=== PATIENT | female | born 1990 | race Caucasian/White ===

== ENCOUNTER 2021-09-08 05:08 | Inpatient (IN) ==
[2021-09-08] MEDS ORDERED: OXYTOCIN 30 UNITS/500 ML BAG IV PRN ×3 (05:42→17:41)
--- NOTE | 2021-09-08 05:45 | History & Physical Report ---
Date of Service September 08, 2021 Assessment & Plan (1) : Plan: Membranes grossly ruptured, admit to L&D, EFM/toco, labs, COVID swab per protocol. Pt would like epidural at some point. History of Present Illness Chief Complaint: rupture of membranes Primary Care Provider: [facility] 31yo @ 39 11/29, presents to L&D after rupture of membranes for clear fluid at about 3:30a. +FM, no vaginal bleeding. Contractions started every few minutes after rupture of membranes. Allergies Allergy/AdvReac Type Severity Reaction Status Date / Time No Known Allergies Allergy Verified 09/03/21 10:41 Home Medications Medication Instructions Recorded Confirmed Type docosahexaenoic acid 200 mg 1 mg PO DAILY 12/25/20 09/08/21 History capsule ( DHA) levothyroxine 88 mcg tablet 88 mcg PO DAILY 12/25/20 09/08/21 History prenat.vits,raul,kor-ivwl-udpmf 1 tab PO DAILY 12/25/20 09/08/21 History cholecalciferol (vitamin D3) 50 2,000 unit PO DAILY #30 cap 03/29/21 09/08/21 Rx mcg (2,000 unit) capsule Patient History Medical History Varicella vaccination Surgical History History of removal of skin mole S/P hernia repair umbilical S/P tonsillectomy Family History Grandmother (Maternal) Breast cancer Father Melanoma Denies family history of Ovarian cancer Colorectal cancer Social History Smoking Status: Never smoker Hx Alcohol Use: No Hx Substance Use: No Preferred Language: Surinamese Communication Ability: Effective [employer] Required: No Beliefs That Will Affect Care: None marital status: marital status details: Solomon Stevens (42) [phone] Current Living Situation: Spouse Current Living Situation Comment: lives with spouse, step son, dog, cats-spouse changing litter current occupational status: employed current occupation: grad student [employer] Other Information That Helps Us Care for You: No Feels Safe at Home: Yes Safety Concerns: Feels Safe At This Time Assistive Devices: None Review of Systems All systems reviewed & are unremarkable except as noted in HPI & below Physical Exam Physical Exam: FHT Cat 1 [place] Q 2-3 SVE per RN /- Constitutional: WD/WN, vitals as above Respiratory: normal respiratory effort, lungs clear to auscultation no respiratory distress Cardiovascular: Rate/Rhythm: regular rate and regular rhythm Gastrointestinal (Abdomen): Inspection/Auscultation: abdomen normal to inspection Percussion/Palpation: abdomen soft; abdomen nontender Gravid. No s/s chorio or abruption. Skin: no rashes, warm and dry Psychiatric: A+Ox3, euthymic affect Results & Data ([facility]) Vital Signs (Past 12 Hours) Vital Signs Temp Pulse Resp BP 09/08/21 05:25 88 133/70 09/08/21 05:23 36.7 C 20 Coding Level of Care Code None Diagnoses Z34.90
[2021-09-08 06:10] LABS: Hematocrit (blood only) 40.6 % (37-47); Hemoglobin 13.9 g/dL (12.0-16.0); Mean Corpuscular Hemoglobin 32.2 pg (25-34); Mean Corpuscular Hgb Conc 34.2 g/dL (32-36); Mean Platelet Volume 10.9 fL (7.4-10.4); Platelet Count 172 K/uL (130-400); RDW Coefficient of Variation 13.4 % (11.5-14.5); RDW Standard Deviation 46.4 fL (36.4-46.3); Red Blood Count 4.32 M/uL (4.2-5.4)
[2021-09-08] MEDS: LACTATED RINGER'S 1,000 ML IV PRN ×2 (08:33→09:34)
[2021-09-08] MEDS ORDERED: ePHEDrine sulfate 50 MG/ML AMP ONE (08:56)
[2021-09-08] MEDS ORDERED: BUPIVACAINE 0.25% 30 ML VIAL ONE (08:56)
[2021-09-08] MEDS ORDERED: SODIUM CHLORIDE 0.9% INJ 10 ML VIAL ONE (08:56)
[2021-09-08] MEDS ORDERED: fentaNYL citrate 100 MCG/2 ML VIAL ONE (08:56)
[2021-09-08] MEDS ORDERED: fentaNYL 2MCG/ML ROPIVACAINE 1.25MG/ML 100 ML BAG EPI ONE (08:57)
--- NOTE | 2021-09-08 09:04 | Anesthesiology Consultation ---
Date of Service September 08, 2021 Assessment & Plan (1) Encounter for pre-operative examination: Chart Review Chart Review: Acceptable Risk for Labor Epidural History Height/Weight Height: 5 ft 9 in Weight: 88.451 kg Allergies Allergy/AdvReac Type Severity Reaction Status Date / Time No Known Allergies Allergy Verified 09/03/21 10:41 Medications Home Medications Medication Instructions Recorded Confirmed Last Taken docosahexaenoic acid 200 mg 1 mg PO DAILY 12/25/20 09/08/21 09/07/21 21:30 capsule ( DHA) levothyroxine 88 mcg tablet 88 mcg PO DAILY 12/25/20 09/08/21 09/07/21 21:30 prenat.vits,raul,yke-nitv-yjfzh 1 tab PO DAILY 12/25/20 09/08/21 09/07/21 21:30 cholecalciferol (vitamin D3) 50 2,000 unit PO DAILY #30 cap 03/29/21 09/08/21 09/07/21 21:30 mcg (2,000 unit) capsule Active Medications Generic Name Dose Route Start Last Admin Trade Name Freq PRN Reason Stop Dose Admin Lactated Ringer's 1,000 mls @ 125 mls/hr 09/08/21 05:42 09/08/21 08:33 Lr IV 09/10/21 05:41 999 mls/hr .Q8H PRN Administration L&D Protocol Protocol Past Medical History Medical History Varicella vaccination Past Family History Family History Grandmother (Maternal) Breast cancer Father Melanoma Denies family history of Ovarian cancer Colorectal cancer Past Surgical History Surgical History History of removal of skin mole S/P hernia repair umbilical S/P tonsillectomy Social History Smoking Status: Never smoker Hx Alcohol Use: No Hx Substance Use: No Physical Exam Vital Signs Last Vital Signs Temp 36.7 C 09/08/21 07:54 Pulse 80 09/08/21 07:54 Resp 20 09/08/21 07:54 BP 124/66 09/08/21 07:54 Testing Laboratory Results 09/08/21 05:58
[2021-09-08] MEDS ORDERED: ePHEDrine sulfate 50 MG/ML AMP IV PRN (10:00)
[2021-09-08] MEDS ORDERED: NALOXONE HCL 0.4 MG/1 ML VIAL/CARP IV PRN (10:00)
[2021-09-08] MEDS ORDERED: fentaNYL 2MCG/ML ROPIVACAINE 1.25MG/ML 100 ML BAG EPI PRN (10:00)
[2021-09-08] MEDS ORDERED: ONDANSETRON INJ 2 MG/ML 2 ML VIAL IV PRN (10:00)
[2021-09-08] MEDS ORDERED: NALOXONE HCL 1 MG in SODIUM CHLORIDE 0.9% 1000ML 1,000 ML IV PRN (10:00)
[2021-09-08] MEDS ORDERED: HYDROCORTISONE ACETATE 25 MG SUPP PR PRN (17:41)
[2021-09-08] MEDS ORDERED: BENZOCAINE 20% AER SPR 82.5 GM CAN EXT PRN (17:41)
[2021-09-08] MEDS ORDERED: oxyCODONE/ACETAMINOPHEN 5mg/325mg TAB PO PRN (17:41)
[2021-09-08] MEDS ORDERED: DIPHTHERIA/TETANUS/PERTUSSIS 0.5 ML SYR/VIAL IM ONE (17:41)
[2021-09-08] MEDS ORDERED: SUPERCREAM 0.870% 15 GM JAR EXT PRN (17:41)
[2021-09-08] MEDS ORDERED: ACETAMINOPHEN 325 MG TAB PO PRN (17:41)
[2021-09-08] MEDS ORDERED: bisacodyL 10 MG SUPP PR PRN (17:41)
--- NOTE | 2021-09-08 18:10 | Anesthesia Procedure Note ---
Date of Service September 08, 2021 Anesthesia Post Epidural Note Vital Signs Vital Signs: Temp Pulse Resp BP Pulse Ox 36.7 C 99 H 20 126/65 95 09/08/21 13:00 09/08/21 17:44 09/08/21 17:37 09/08/21 17:44 09/08/21 17:04 Pain Intensity Bilateral Abdomen: Pain Intensity: 9 Notes Mental Status: alert / awake / arousable and participated in evaluation Nausea / Vomiting: adequately controlled Pain: adequately controlled Airway Patency, RR, SpO2: stable & adequate BP & HR: stable & adequate Hydration State: stable & adequate Neuraxial Anesthesia: was administered and sensory block is resolving Anesthetic Complications: no major complications apparent Epidural: Removed without complications and With tip intact
--- NOTE | 2021-09-08 18:44 | Delivery Summary ---
Vaginal Delivery Summary Date of Service September 08, 2021 Vaginal Delivery Summary and 1st Degree LAC Patient is a 31-year-old white female EDC 09/11/2021 who presented at 39+ weeks with ruptured membranes for clear fluid. She began to contract spontaneously and requested epidural analgesia which was effective. She received Pitocin augmentation of her labor and she progressed to full dilation and +1 station. She pushed effectively for delivery of a viable female infant o marcello intact perineum. There was a loose nuchal cord reduced after delivery of the head. The rest the delivered easily was placed on the mother's abdomen for further attention and drying and stimulation. The was vigorous and moving all 4 limbs. The placenta was expressed with a three-vessel cord. Of note, there was a true knot in the cord. bleeding was controlled with dilute Pitocin and fundal massage. A first-degree perineal laceration was repaired with 3-0 chromic in the usual fashion. Estimated blood loss was 300 cc. Mother and infant were doing well after delivery[place] [facility] [place] Charge Delivery Type Details: and 1st Degree LAC
[2021-09-08] MEDS: IBUPROFEN 600 MG TAB PO PRN (19:52)
[2021-09-08] MEDS: DOCUSATE SODIUM 100 MG CAP PO SCH (21:07)
[2021-09-09] MEDS: IBUPROFEN 600 MG TAB PO PRN ×5 (00:22→20:36)
[2021-09-09] MEDS: LEVOTHYROXINE SODIUM 88 MCG TABLET PO SCH (06:05)
[2021-09-09 06:36] LABS: Mean Corpuscular Hemoglobin 32.2 pg (25-34); Mean Corpuscular Hgb Conc 34.3 g/dL (32-36); Mean Corpuscular Volume 93.8 fL (80-100); Mean Platelet Volume 11.3 fL (7.4-10.4); Platelet Count 162 K/uL (130-400); RDW Coefficient of Variation 13.6 % (11.5-14.5); RDW Standard Deviation 46.7 fL (36.4-46.3); Red Blood Count 3.73 M/uL (4.2-5.4); White Blood Count 15.21 K/uL (4.8-10.8)
[2021-09-09] MEDS: PRENATAL VITAMIN 1 TAB PO SCH (08:17)
[2021-09-09] MEDS: DOCUSATE SODIUM 100 MG CAP PO SCH ×2 (08:17→20:35)
--- NOTE | 2021-09-09 09:06 | Obstetrical Progress Note ---
Date of Service September 09, 2021 Assessment & Plan (1) Encounter for care and examination after delivery: satisfactory exam continue current care plan Subjective Ambulation: ambulating normally Voiding: no voiding problems Passing Gas:: Yes Diet Tolerance:: regular diet Lochia:: Moderate Feeding Type:: breast feeding Review of Systems All systems reviewed & are unremarkable except as noted in HPI & below Physical Exam Constitutional WD/WN, vitals as above Psychiatric A+Ox3, euthymic affect Genitourinary OB Exam Abdomen: + fundal height Fundus: + firm and + relation to umbilicus (at U); not tender Results & Data ([facility]) Vital Signs (Past 12 Hours) Vital Signs Temp Pulse Resp BP Pulse Ox 09/09/21 07:45 99.0 F 80 18 100/63 98 09/09/21 03:15 98.4 F 89 16 119/68 97 09/09/21 00:00 98.6 F 88 16 114/69 98
[2021-09-09] MEDS ORDERED: bisacodyL 5 MG TABEC PO SCH (20:00)
[2021-09-10] MEDS: IBUPROFEN 600 MG TAB PO PRN (05:16)
[2021-09-10] MEDS: LEVOTHYROXINE SODIUM 88 MCG TABLET PO SCH (06:12)
[2021-09-10 06:22] LABS: Hematocrit (blood only) 35.2 % (37-47); Hemoglobin 11.8 g/dL (12.0-16.0)
--- NOTE | 2021-09-10 06:35 | Obstetrical Progress Note ---
Date of Service <Pedro Ceja DO - Last Filed: 09/10/21 07:21> September 10, 2021 Assessment & Plan <Pedro Ceja DO - Last Filed: 09/10/21 07:21> (1) Encounter for care and examination after delivery: 31 yo post day 2 from vaginal delivery, doing well. -Continue routine post care. - vital signs reviewed and WNL. (Tmax 37.4) -Blood type O+, GBS -, Rubella Immune -Encourage ambulation, monitor and control pain with Motrin, tylenol PRN. -encourage breast feeding. Breast pump - already has. -hemoglobin 11.8. -d/c today. <Alla Rea MD, FACOG - Last Filed: 09/10/21 07:43> (1) Encounter for care and examination after delivery: Subjective <Pedro Ceja DO - Last Filed: 09/10/21 07:21> Ambulation: ambulating normally Voiding: no voiding problems Passing Gas:: Yes Diet Tolerance:: regular diet Lochia:: Small Feeding Type:: breast feeding Current Pain Level(1-10): 0 Review of Systems Denies fever, chills, sweats Denies shortness of breath, difficulty breathing, chest pain, palpitations, chest pressure. Denies breast pain. Denies dysuria. Denies headache or changes in vision Physical Exam <Pedro Ceja DO - Last Filed: 09/10/21 07:21> General: Alert, oriented. No acute distress. Cardiac: Regular rate and rhythm, no murmurs/rubs/gallops. Respiratory: Clear to auscultation bilaterally a/p, no wheezes/rales/rhonchi. No increased work of breathing. Symmetrical chest rise. No respiratory distress. Abdomen: Soft, nontender, nondistended. Bowel sounds present. Uterus: Uterine fundus firm, palpable 1 cm below umbilicus. Lower Extremities: No lower extremity edema or swelling. No deep calf pain. Alexey's negative bilaterally Results & Data ([facility]) <Pedro Ceja DO - Last Filed: 09/10/21 07:21> Vital Signs (Past 12 Hours) Vital Signs Temp Pulse Resp BP Pulse Ox 09/09/21 23:00 37.1 C 87 16 117/66 97 09/09/21 19:40 37.0 C 93 H 18 114/70 <Alla Rea MD, FACOG - Last Filed: 09/10/21 07:43> Co-Signing Physician Notes Resident Physician Supervision Note: I interviewed and examined the patient. Discussed with Dr. Ceja and agree with findings and plan as documented in the note. Any exceptions or clarifications are listed here: [None] Documented By: Alla Rea MD, FACOG Resident Activity Tracking <Pedro Ceja DO - Last Filed: 09/10/21 07:21> Resident Involvement: Resident Care Provided Care Provided: Adult Hospital Medicine
[2021-09-10] MEDS: PRENATAL VITAMIN 1 TAB PO SCH (07:33)
[2021-09-10] MEDS: DOCUSATE SODIUM 100 MG CAP PO SCH (07:33)
== END 2021-09-10 11:15 | disposition home or self-care (01) | DRG 807 ==
LOC: OPB 05:08 → 4S1 05:16 → 4S2 20:18
DX: Z79.890 Hormone replacement therapy; O70.0 First degree perineal laceration during delivery; Z79.899 Other long term (current) drug therapy; O69.81X0 Labor and delivery complicated by cord around neck, without compression, not applicable or unspecified; Z3A.39 39 weeks gestation of pregnancy; Z37.0 Single live birth; O42.02 Full-term premature rupture of membranes, onset of labor within 24 hours of rupture